=== PATIENT | female | born 1970 | race African-American/Black ===

== ENCOUNTER 2020-12-09 20:05 | Emergency (ER) | payer OTHER ==
[~2020-12-09] VITALS: Ht 167.6 cm; Wt 52.2 kg
[~2020-12-09 20:05] MED LIST: HUMALOG100 UNIT/1 SUBQ; HYDROCODON-ACE1 EAC7 PO; HYDROCODON-ACE1 EAC8 PO; KEPPRA 500 MG500 MG PO; KEPPRA100 MG/1 M PO; LANTUS SUBQ; PHENYTOIN SODI100 M3 PO; PRILOSEC10 MG PO; REGLAN 10 MG TA10 MG PO; SEIZURE
[2020-12-09 20:29] LABS: BASOPHILS 1.1 % (0.0-2.0); EOSINOPHILS 0.8 % (0.0-3.0); HEMATOCRIT 40.3 % (37.0-47.0); LYMPHOCYTES 39.9 % (24.0-44.0); MCH 26.6 pg (26.0-34.0); MCHC 32.3 g/dL (28.0-37.0); MCV 82.5 fL (80.0-100.0); MONOCYTES 6.5 % (1.0-8.0); PLATELET COUNT 300 thou/uL (150-400); POLYS 51.7 % (36.0-66.0); RBC 4.88 mil/uL (4.20-5.00); RDW 18.4 % (10.5-14.5); WBC 5.8 thou/uL (4.0-11.0)
[2020-12-09 20:40] VITALS: BP 139/87
[2020-12-09 20:45] LABS: ANION GAP 10 mmol/L (7-16); BUN 14 mg/dL (7-18); CALCIUM 9.6 mg/dL (8.5-10.1); CHLORIDE 99 mmol/L (98-107); CO2 28 mmol/L (21-32); CREATININE 0.7 mg/dL (0.6-1.0); GLUCOSE 210 mg/dL (74-106); POTASSIUM 3.8 mmol/L (3.5-5.1); SODIUM 137 mmol/L (136-145)
[2020-12-09 20:55] LABS: ALBUMIN 3.8 g/dL (3.4-5.0); SGOT 22 U/L (15-37); SGPT 20 U/L (14-59); TOTAL BILIRUBIN 0.3 mg/dL (0.2-1.0); TOTAL PROTEIN 8.9 g/dL (6.4-8.2); TROPONIN-I <0.06 ng/mL (<0.06)
--- NOTE | 2020-12-10 14:24 | EKG ---
[address] [address] [place] [address] ELECTROCARDIOGRAM REPORT Name: DYEVI HERNANDEZ [facility]: [id number] Admission: 12/09/20 Attend Phys: Discharge: 12/09/20 Date of : 72 Report #: [id number] [facility] ED Test Date: 2020-12-09 Test Time: 20:34:58 Pat Name: DEYVI LUNA Department: Room: Gender: F [employer]: : 1970 Requested By: Lopez Eason Order Number: [id number] MD: Ki Hough Measurements Intervals [place] Rate: 99 P: 70 AK: 123 QRS: 20 QRSD: 80 T: 65 QT: 370 QTc: 475 Interpretive Statements Sinus rhythm Probable left atrial enlargement Baseline wander in lead(s) V1 No previous ECG available for comparison Electronically Signed On 12-10-2020 14:24:47 CDT by Ki Hough [email or web address] <ELECTRONICALLY SIGNED> By: Ki Hough MD, [facility] 12/10/20 1424 33 2034 Ki Hough MD, FACC /EPI
== END 2020-12-09 20:44 | disposition left against medical advice (07) ==
LOC: ER 20:05
PROVIDERS: Emergency Medicine
DX: G40.909 Epilepsy, unspecified, not intractable, without status epilepticus (principal); G89.29 Other chronic pain; E11.9 Type 2 diabetes mellitus without complications; Z88.8 Allergy status to other drugs, medicaments and biological substances; Z88.5 Allergy status to narcotic agent; Z79.4 Long term (current) use of insulin